=== PATIENT | female | born 1980 | race Caucasian/White ===

== ENCOUNTER → 2025-03-23 | Outpatient (CLI) | payer BC, SELFPAY ==
[2025-03-23 08:35] LABS: Albumin, Serum 4.4 gm/dL (3.5-5.0); Anion Gap 9 (7-16); BUN/Creatinine Ratio 13 Ratio (12-20); Blood Urea Nitrogen 12 mg/dL (9-23); Calcium 9.3 mg/dL (8.3-10.6); Calcium (Corrected) 9.3 mg/dL (8.5-10.1); Carbon Dioxide 29.5 mMol/L (20.0-31.0); Chloride 105 mMol/L (98-107); Creatinine (Component) 0.9 mg/dL (0.6-1.3); Glucose 93 mg/dL (74-106); Osmolality,Calculated 284 (275-295); Phosphorous 3.3 mg/dL (2.4-5.1); Potassium 3.9 mMol/L (3.4-5.1); Sodium 143 mMol/L (136-145); eGFR > 60 See Note
[2025-03-23 08:38] LABS: Follicle Stimulating Hormone 7.73 mIU/mL (See Note)
[2025-04-09 06:31] LABS: Estrogen, Total, Serum* 393 pg/mL; Luteinizing Hormone* 5.5 mIU/mL; Progesterone,LC/MS* 5.9 ng/mL
== END | disposition home or self-care (01) ==
LOC: SLAB 07:24
PROVIDERS: PCP Internal Medicine; Referring Provider Internal Medicine; Visit Provider Internal Medicine
DX: E28.310 Symptomatic premature menopause (principal); I10 Essential (primary) hypertension
CPT/HCPCS: 36415; 80069; 82672; 83001; 83002; 84144

== ENCOUNTER → 2025-04-15 | Outpatient (CLI) | payer BC, SELFPAY ==
--- NOTE | 2025-04-15 | XR_ITS ---
Examination: Right knee 2 views Technique one AP lateral right knee 2 views Date and time: April 07, 2025 1228 hours INDICATIONS: Patient fell down a ladder 8 days ago with injury to the knee, knee pain. 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 No fracture Mild to moderate knee effusion IMPRESSION: No fracture
== END | disposition home or self-care (01) ==
LOC: CDIM 11:35
PROVIDERS: PCP Internal Medicine; Referring Provider Orthopaedic Surgery Adult Reconstructive Orthopaedic Surgery; Visit Provider Internal Medicine
DX: S89.91XA Unspecified injury of right lower leg, initial encounter (principal); W19.XXXA Unspecified fall, initial encounter
CPT/HCPCS: 73560

== ENCOUNTER → 2025-05-09 | Outpatient (CLI) | payer BC, SELFPAY ==
--- NOTE | 2025-05-09 15:00 | XR_ITS ---
Exam: MRI knee without contrast, right INDICATIONS: Generalized knee pain post injury one month ago, instability joint clicking stiffness swelling Date and time of exam: May 09, 2025 1444 hours Technique: Multiple axial, coronal, and sagittal sections on the knee have been obtained. T2-Weighted sagittal, fat-suppressed images, TR 3,500, TE 62, T2 weighted coronal fat-saturated images, TR 3,500, TE 62 Proton density sagittal sections, TR 1800, TE 31. T-1 weighted coronal images, TR 524, TE 13.0 Findings: Medial meniscus anterior horn intact. Medial meniscus, body intact. Posterior horn medial meniscus is intact. Lateral meniscus anterior horn is intact Lateral meniscus, body is intact Posterior horn lateral meniscus is intact Anterior cruciate ligament moderate sprain Posterior cruciate ligament appears intact. Knee effusion is moderate. Quadriceps and patellar tendons appear intact. There is no evidence of tendinosis. Inflammatory change or fracture of Hoffa's fat pad is not seen. Medial patellar facet demonstrates with thinning. Lateral patellar facet cartilage demonstrates moderate thinning. Trochlear cartilage demonstrates moderate thinning. Marrow signal adequate. Medial collateral ligament appears intact. No meniscocapsular separation is seen. Illiotibial band and fibular collateral ligament are intact. Biceps femoris tendons appear intact. Medial femoral condylar articular cartilage demonstrates moderate thinning. Lateral femoral condylar articular cartilage demonstratesmoderate thinning. Tibial plateau cartilage demonstrates moderate thinning. Impression: Moderate sprain anterior cruciate ligament
== END | disposition home or self-care (01) ==
LOC: SMRI 14:30
PROVIDERS: PCP Internal Medicine; Referring Provider Internal Medicine; Visit Provider Internal Medicine
DX: S83.511A Sprain of anterior cruciate ligament of right knee, initial encounter (principal); X58.XXXA Exposure to other specified factors, initial encounter
CPT/HCPCS: 73721